=== PATIENT | male | born 1960 | race Caucasian/White ===

== ENCOUNTER → 2020-12-16 | Outpatient (REF) | payer MEDICARE, MEDICAID ==
[2020-12-16 11:42] LABS: BLOOD UREA NITROGEN 11 MG/DL (7-18); CALCIUM LEVEL 8.6 MG/DL (8.5-10.1); CARBON DIOXIDE LEVEL 28 MEQ/L (21-32); CHLORIDE LEVEL 110 MEQ/L (98-107); CREATININE FOR GFR 0.93 MG/DL (0.70-1.30); GLOMERULAR FILTRATION RATE > 60.0 (>56); GLUCOSE, FASTING 116 MG/DL (70-100); HEMOGLOBIN A1c 5.4 %; POTASSIUM SERUM 4.1 MEQ/L (3.5-5.1); SODIUM LEVEL 141 MEQ/L (136-145)
== END ==
LOC: M SFHCCLAY 07:27
PROVIDERS: ATTEND Family Medicine
DX: Z13.1 Encounter for screening for diabetes mellitus (principal); Z79.899 Other long term (current) drug therapy; Z23 Encounter for immunization
CPT/HCPCS: 80048; 83036; 90732; G0009; G0463

== ENCOUNTER → 2021-06-18 | Outpatient (CLI) | payer MEDICARE, MEDICAID | LOC: M LABSMTC 09:34 | PROVIDERS: ATTEND Internal Medicine Cardiovascular Disease | DX: Z11.52 Encounter for screening for COVID-19 (principal) ==

== ENCOUNTER → 2021-12-01 | Outpatient (REF) | payer MEDICARE, MEDICAID | LOC: M SFHCCLAY 15:52 | PROVIDERS: ATTEND Nurse Practitioner Family | DX: I25.2 Old myocardial infarction (principal); I11.9 Hypertensive heart disease without heart failure ==

== ENCOUNTER → 2021-12-02 | Outpatient (REF) | payer MEDICARE, MEDICAID | LOC: M SFHCCLAY 07:03 | PROVIDERS: ATTEND Nurse Practitioner Family | DX: I25.2 Old myocardial infarction (principal); I11.9 Hypertensive heart disease without heart failure ==

== ENCOUNTER → 2021-12-08 | Outpatient (CLI) | payer MEDICARE, MEDICAID | LOC: M RAD 06:27 | PROVIDERS: ATTEND Nurse Practitioner Family | DX: Z87.891 Personal history of nicotine dependence (principal) ==

== ENCOUNTER → 2022-01-01 | Outpatient (CLI) | payer MEDICARE, MEDICAID | LOC: M SOG 08:07 | PROVIDERS: ATTEND Orthopaedic Surgery | DX: M25.512 Pain in left shoulder (principal) ==

== ENCOUNTER → 2022-06-10 | Outpatient (REF) | payer MEDICARE, MEDICAID ==
[2022-06-10 12:10] LABS: HEMATOCRIT 47.5 % (42.0-52.0); HEMOGLOBIN 16.3 g/dl (13.5-17.5); MEAN CORPUSCULAR HEMOGLOBIN 32.7 pg (27.0-33.0); MEAN CORPUSCULAR HGB CONC 34.3 g/dl (32.0-36.5); MEAN CORPUSCULAR VOLUME 95.4 fl (80.0-96.0); PLATELET COUNT, AUTOMATED 222 10^3/uL (150-450); RED BLOOD COUNT 4.98 10^6/uL (4.30-6.10); WHITE BLOOD COUNT 7.7 10^3/uL (4.0-10.0)
[2022-06-10 12:43] LABS: ALBUMIN 3.9 G/DL (3.2-5.2); ALKALINE PHOSPHATASE 340 U/L (46-116); ALT/SGPT 28 U/L (7.0-40); AST/SGOT 22 U/L (<34); BILIRUBIN,TOTAL 0.7 MG/DL (0.3-1.2); BLOOD UREA NITROGEN 9 MG/DL (9-23); CALCIUM LEVEL 9.1 MG/DL (8.3-10.6); CARBON DIOXIDE LEVEL 29 MMOL/L (20-31); CHLORIDE LEVEL 106 MMOL/L (98-107); CHOLESTEROL LEVEL 97 MG/DL (<200); CREATININE FOR GFR 0.87 MG/DL (0.70-1.30); GLOMERULAR FILTRATION RATE > 60.0 (>49); GLUCOSE, FASTING 97 MG/DL (74-106); HDL CHOLESTEROL 32.3 MG/DL (>40); LDL CHOLESTEROL 45.3 MG/DL (<100); NON-HDL-C 65 MG/DL; POTASSIUM SERUM 4.2 MMOL/L (3.5-5.1); SODIUM LEVEL 139 MMOL/L (136-145); TOTAL PROTEIN 6.5 G/DL (5.7-8.2); TRIGLYCERIDES LEVEL 97 MG/DL (<150)
== END ==
LOC: M SFHCCLAY 09:10
PROVIDERS: ATTEND Nurse Practitioner Family
DX: I25.2 Old myocardial infarction (principal); I11.9 Hypertensive heart disease without heart failure

== ENCOUNTER → 2022-06-14 | Outpatient (REF) | payer MEDICARE, MEDICAID ==
[2022-06-14 13:06] LABS: HEPATITIS B SURFACE ANTIGEN NEGATIVE (NEGATIVE)
[2022-06-14 13:26] LABS: HEPATITIS B CORE ANTIBODY IGM NEGATIVE (NEGATIVE)
== END ==
LOC: M SFHCCLAY 08:24
PROVIDERS: ATTEND Nurse Practitioner Family
DX: R74.8 Abnormal levels of other serum enzymes (principal)

== ENCOUNTER → 2022-08-17 | Outpatient (CLI) | payer MEDICARE, MEDICAID ==
[2022-08-17 15:04] LABS: BLOOD UREA NITROGEN 12 MG/DL (9-23); CREATININE FOR GFR 0.87 MG/DL (0.70-1.30); GLOMERULAR FILTRATION RATE > 60.0 (>49)
== END ==
LOC: M LAB 13:57
PROVIDERS: ATTEND Physician Assistant
DX: H91.93 Unspecified hearing loss, bilateral (principal); R42 Dizziness and giddiness

== ENCOUNTER → 2022-08-19 | Outpatient (CLI) | payer MEDICAID, MEDICARE | LOC: M PLARAD 12:22 | PROVIDERS: ATTEND Otolaryngology | DX: R42 Dizziness and giddiness (principal); I63.81 Other cerebral infarction due to occlusion or stenosis of small artery; J34.9 Unspecified disorder of nose and nasal sinuses; M12.9 Arthropathy, unspecified ==

== ENCOUNTER → 2023-03-10 | Outpatient (REF) | payer MEDICARE, MEDICAID ==
[2023-03-10 19:07] LABS: HEMATOCRIT 49.9 % (42.0-52.0); HEMOGLOBIN 16.9 g/dl (13.5-17.5); MEAN CORPUSCULAR HEMOGLOBIN 33.3 pg (27.0-33.0); MEAN CORPUSCULAR HGB CONC 33.9 g/dl (32.0-36.5); MEAN CORPUSCULAR VOLUME 98.2 fl (80.0-96.0); PLATELET COUNT, AUTOMATED 209 10^3/uL (150-450); RED BLOOD COUNT 5.08 10^6/uL (4.30-6.10); WHITE BLOOD COUNT 7.6 10^3/uL (4.0-10.0)
[2023-03-10 19:18] LABS: ERYTHROCYTE SEDIMENTATION RATE 5 mm/hr (0-20)
[2023-03-10 19:37] LABS: ALBUMIN 3.9 G/DL (3.2-5.2); ALKALINE PHOSPHATASE 84 U/L (46-116); ALT/SGPT 28 U/L (7.0-40); AST/SGOT 17 U/L (<34); BILIRUBIN,TOTAL 0.7 MG/DL (0.3-1.2); BLOOD UREA NITROGEN 10 MG/DL (9-23); CALCIUM LEVEL 8.9 MG/DL (8.3-10.6); CARBON DIOXIDE LEVEL 28 MMOL/L (20-31); CHLORIDE LEVEL 105 MMOL/L (98-107); CHOLESTEROL LEVEL 98 MG/DL (<200); CHOLESTEROL RISK RATIO 2.69 (<5); CREATININE FOR GFR 0.81 MG/DL (0.70-1.30); GLOMERULAR FILTRATION RATE > 60.0 (>49); GLUCOSE, FASTING 148 MG/DL (74-106); HDL CHOLESTEROL 36.3 MG/DL (>40); LDL CHOLESTEROL 42.5 MG/DL (<100); NON-HDL-C 61.7 MG/DL; POTASSIUM SERUM 4.7 MMOL/L (3.5-5.1); SODIUM LEVEL 140 MMOL/L (136-145); TOTAL PROTEIN 6.4 G/DL (5.7-8.2); TRIGLYCERIDES LEVEL 96 MG/DL (<150)
== END ==
LOC: M LABDRAWC 17:41
PROVIDERS: ATTEND Nurse Practitioner Family
DX: R06.9 Unspecified abnormalities of breathing (principal); I25.10 Atherosclerotic heart disease of native coronary artery without angina pectoris; E78.00 Pure hypercholesterolemia, unspecified; E07.9 Disorder of thyroid, unspecified